=== PATIENT | female | born 1970 | race Caucasian/White ===

== ENCOUNTER → 2023-11-22 14:01 | Outpatient (REF) | payer OTHER, SELFPAY | LOC: HWWDC 14:01 | PROVIDERS: ATTENDING PHYSICIAN Physician Assistant Medical | DX: Z12.31 Encounter for screening mammogram for malignant neoplasm of breast (principal) | CPT/HCPCS: 77063; 77067 ==

== ENCOUNTER → 2024-01-08 06:26 | Day surgery (SDC) | payer OTHER, SELFPAY | LOC: GI 06:26 | PROVIDERS: ATTENDING PHYSICIAN Specialist | DX: Z12.11 Encounter for screening for malignant neoplasm of colon (principal); Z86.010 Personal history of colon polyps | CPT/HCPCS: G0105 ==

== ENCOUNTER → 2025-05-04 07:32 | Outpatient (REF) | payer OTHER, SELFPAY | LOC: HWCARD 07:32 | PROVIDERS: ATTENDING PHYSICIAN Physician Assistant Medical | DX: R07.89 Other chest pain (principal) | CPT/HCPCS: 93005 ==

== ENCOUNTER 2025-05-04 14:09 | Emergency (ER) | payer OTHER, SELFPAY ==
[2025-05-04 14:19] VITALS: BP 121/94
[2025-05-04 15:34] VITALS: BP 151/87
[2025-05-04 15:37] VITALS: BMI 23.2
--- NOTE | 2025-05-04 15:42 | ED.GENMED ---
History of Present Illness
General
Chief Complaint: Chest Pain
Time Seen by Provider: 05/04/25 15:42
History of Present Illness
History of Present Illness:
FOCUSED PAST MEDICAL HISTORY
- Former smoker
REVIEW OF OLD RECORDS
- The patient had a colonoscopy in 2023
Note:
CHIEF COMPLAINT(S)
Chest tightness
HISTORY OF PRESENT ILLNESS
The patient is a 55-year-old female who presents with a primary complaint of chest tightness that has persisted for approximately one week. The sensation is described as a muscular tightness and is predominantly noted while sitting, rather than
during exertion such as climbing stairs. The patient denies any exacerbation of symptoms with physical activity and reports no previous occurrences of similar symptoms. She denies associated symptoms like shortness of breath or pain upon palpation
or with deep breathing. The patient states the discomfort has neither worsened nor improved since onset.
The patient had a recent appointment with her primary care physician where an in-office electrocardiogram (EKG) was conducted, revealing a left bundle branch block. The finding was confirmed by a subsequent EKG performed at a wellness center earlier
today. A review of an EKG from 2016 showed no presence of a left bundle branch block. The patient is currently experiencing chest tightness but reports that the symptom has remained consistent over the past week without acute exacerbation.
No exertional chest discomfort, no shortness of breath, no pleuritic component.
PHYSICAL EXAM
General: Alert, no acute distress.
Skin: Warm, dry.
Head: Normocephalic, atraumatic.
Neck: Supple, trachea midline.
Eyes, Ears, Nose, Mouth, and Throat: Oral mucosa moist.
Cardiovascular: Normal peripheral perfusion, no edema. There is no chest wall tenderness.
Respiratory: Respirations are non-labored, lungs clear to auscultation.
Gastrointestinal: Abdomen nondistended, no pain upon palpation.
Back: Normal range of motion, normal alignment.
Musculoskeletal: Normal range of motion, normal strength.
Neurological: Alert and oriented to person, place, time, and situation, no focal neurological deficit observed.
Psychiatric: Cooperative, appropriate mood and affect.
PLAN
1. Blood work to be conducted, including measurement of troponin levels to assess for myocardial infarction.
2. Recommend follow-up with a economics department chair for further evaluation and management of newly diagnosed left bundle branch block and chest discomfort.
3. Monitor vital signs and clinical condition closely.
DIFFERENTIAL DIAGNOSIS
The Differential Diagnosis includes, in no particular order and is not limited to:
1. Myocardial infarction
2. Acute coronary syndrome
3. Myocarditis
4. Aortic dissection
5. Pericarditis
6. Pulmonary embolism
7. Gastroesophageal reflux disease
8. Costochondritis
9. Anxiety or panic disorder
10. Musculoskeletal chest pain
RADIOLOGY
- Chest x-ray unremarkable
EKG
- Sinus 80, normal axis, left bundle branch block which is new in comparison to 10/02/2015
LABS
- Troponin less than 0.012
UPDATE
-SUMMARY OF ENCOUNTER
The patient, a 55-year-old female, was seen in the emergency department due to persistent chest tightness for approximately one week, with a recent finding of a left bundle branch block on EKG. The symptoms were described as a muscular tightness
predominantly noted while sitting and without exacerbation during exertion. The patient denies associated symptoms such as shortness of breath or pain on deep breathing. Previous testing revealed no left bundle branch block in 2016. Cardiac blood
work was performed, with troponin level measured at less than 0.012 ng/mL, which is within normal limits, indicating no acute myocardial infarction. The patients condition remained stable without worsening of symptoms during the visit.
ASSESSMENT
The patient presents with chest tightness and newly identified left bundle branch block. The primary concern is a potential cardiac cause, although the stability of symptoms and normal troponin suggest low immediate risk. Referral to a economics department chair
for further evaluation is necessary given the new EKG finding.
PLAN
1. Recommend follow-up with [facility] cardiology for further evaluation and management of the left bundle branch block and chest discomfort.
2. Educate the patient on warning signs that require immediate medical attention, such as worsening chest discomfort or symptoms with physical exertion.
3. Provide contact information for a local economics department chair and ensure they reach out to schedule an appointment within the next couple of days.
PATIENT EDUCATION AND COUNSELING
The patient was advised to seek immediate medical attention for any worsening of symptoms, particularly if chest discomfort increases with exertion. She was informed about the importance of the economics department chair evaluation due to the new left bundle
branch block finding.
FOLLOW-UP INSTRUCTIONS
The patient is to follow up with [facility] cardiology as soon as possible. She will be contacted by the cardiology group to schedule an appointment. If not contacted by the following day, she should call their office directly.
MEDICAL DECISION MAKING
-Complexity of Data Reviewed: Differential Diagnosis includes myocardial infarction, acute coronary syndrome, myocarditis, aortic dissection, pericarditis, pulmonary embolism, gastroesophageal reflux disease, costochondritis, anxiety or panic
disorder, and musculoskeletal chest pain.
-Data:
Category 1
Reviewed cardiac blood work, which showed normal troponin levels <0.012 ng/mL, indicating no myocardial infarction.
My independent interpretation of the EKG confirmed the presence of a left bundle branch block.
-Risk:
The patient is considered safe for outpatient management with close follow-up with a economics department chair due to the absence of acute life/organ-threatening processes, stable and non-worsening symptoms, normal cardiac blood work, and reliable follow-up
capability.
DIAGNOSIS
Chest pain
Left bundle branch block, unspecified as chronic or acute (ICD-10: I44.7)
I confirm with the patient that she had no worsening symptoms today. She never had any exertional symptoms that have been ongoing for 1 week. The symptoms are more prominent when she sits and she does not notice them when she exerts herself.
Patient is to follow-up with [facility] cardiology and chest pain hotline discharge paperwork used.
Past History
Past History
ED Past Medical History: Psychiatric (ADHD) and Other (Back pain)
ED Past Surgical History: Orthopedic (Lumbar surgery)
Social History
Tobacco: Smoker
Alcohol: None
Personal:
Living: with family
Employment: Employed
Family History
Family History: CAD (MOM); Negative Early CAD or Sudden
Phy Exam
Physical Exam
Physical Exam:
See HPI
Scores
Heart Score for Chest Pain Patients
STEMI patient?: Not applicable
Course
Orders/Labs/Results
Orders:
Orders
05/04/25 14:10
EKG [Electrocardiogram (*1)] Urgent
Reason for Study: Chest Pain
EKG- Treatment ONCE
05/04/25 15:37
CXR2 [CR Chest - 2 Views ] Urgent
Comment:
Reason For Exam: chest pain with SOB
05/04/25 15:44
Complete Blood Count/With Diff Urgent
Comprehensive Metabolic Panel Urgent
Magnesium Urgent
TSH Reflex To Free T4 Urgent
Troponin I Urgent
Abnormal Lab Results
05/04/25
15:44
RDW 14.6 H %
(11.5-14.5)
Eosinophils % 6.9 H %
(0-6)
Carbon Dioxide 32 H mmol/L
(22-30)
05/04/25 15:44
05/04/25 15:44
Vital Signs
Initial and Last Documented VS:
Initial Vital Signs
Temp Pulse Resp BP Pulse Ox
36.6 C 84 16 121/94 98
05/04/25 14:19 05/04/25 14:19 05/04/25 14:19 05/04/25 14:19 05/04/25 14:19
Last Documented Vital Signs
Temp Pulse Resp BP Pulse Ox
36.4 C 70 14 151/87 96
05/04/25 15:48 05/04/25 15:48 05/04/25 15:48 05/04/25 15:48 05/04/25 15:48
*Pulse Oximetry
SaO2: 98
Oxygen Mode of Delivery: Room air
Patient hypoxic: no
*Critical Care Note
Total Time (30-74mins, 75-104mins- exclusive of procedures): Not Applicable
ED Attending Note
-
Portions of this chart may have been created with voice recognition software.� Occasional wrong word or��sound alike� substitutions may have occurred due to the inherent limitations of voice recognition software.
Discharge Plan
Departure
Patient Disposition: Home (Routine Discharge)
Date of Disposition: 05/04/25
Time of Disposition: 17:19
Patient with high blood pressure during this ER visit?: Yes
Discharge Problem:
Chest pain
Instructions: Chest Pain CBC Follow Up, BLOOD PRESSURE
Prescriptions:
No Action
No Current Medications
0
Referrals:
Julieta Smith PA-C [Family Provider, Internal Medicine]
Barry Ellington MD [Active, Cardiology]
Activity Restrictions/Additional Instructions:
You do have a new left bundle branch block in comparison to the EKG of 2016. Cardiac blood work is normal. Thyroid testing is normal. Chest x-ray shows no abnormality. If you develop worsening chest discomfort or especially if your symptoms
worsen with exertion, return here immediately. I am giving the contact information for local economics department chair to follow-up with.
Interventions
Interventions:
*Risk Screen - Suicide Last Done: 05/04/25 14:19
*General Assessment Last Done: 05/04/25 15:48
*Neglect/Abuse Screening Last Done: 05/04/25 14:19
*ED- Fall Risk Assessment Last Done: 05/04/25 15:48
*ED COVID-19 Vaccine History Last Done: 05/04/25 15:48
*ED Influenza Vaccine History Last Done: 05/04/25 15:48
ED- Cardiac Assessment Last Done: 05/04/25 15:48
Discharge Date and Time
Print Language: SRI LANKAN
[2025-05-04 15:48] VITALS: BP 151/87
[2025-05-04 15:55] LABS: Hematocrit 42.4 % (37.0-47.0); Hemoglobin 14.0 g/dL (12.0-16.0); Mean Corp Hgb Conc. 33.0 g/dL (33.0-37.0); Mean Corpuscular Volume 88.1 fL (81.0-99.0); Nucleated Red Blood Cells % 0 %; Platelet Count 303 10^3/uL (130-400); Red Cell Dist. Width 14.6 % (11.5-14.5)
[2025-05-04 16:00] VITALS: BP 137/87
[2025-05-04 16:05] LABS: ALT (SGPT) 21 U/L (0-35); AST (SGOT) 27 U/L (14-36); Albumin 4.4 g/dl (3.5-5.0); Alkaline Phosphatase 69 U/L (38-126); Blood Urea Nitrogen 13 mg/dl (7-17); Calcium 9.5 mg/dl (8.4-10.2); Carbon Dioxide 32 mmol/L (22-30); Chloride 103 mmol/L (98-107); Estimated Creatinine Clearance 77 ml/min; Glucose 90 mg/dl (70-99); Magnesium 2.2 mg/dl (1.6-2.3); Potassium 4.5 mmol/L (3.5-5.1); Sodium 140 mmol/L (135-145); Total Protein 7.3 g/dl (6.3-8.2); eGFR > 60.00
[2025-05-04 16:15] LABS: Troponin I < 0.012 ng/ml
[2025-05-04 17:30] VITALS: BP 141/85
== END 2025-05-04 17:36 | disposition home or self-care (01) ==
LOC: EMR 14:09
PROVIDERS: EMERGENCY PHYSICIAN Emergency Medicine; FAMILY PHYSICIAN Physician Assistant Medical
DX: R07.89 Other chest pain (principal); I44.7 Left bundle-branch block, unspecified; Z87.891 Personal history of nicotine dependence
CPT/HCPCS: 99285; 71046; 80053; 83735; 84443; 84484; 85025; 93005

== ENCOUNTER 2025-05-20 21:14 | Emergency (ER) | payer OTHER, SELFPAY ==
[2025-05-20 21:16] VITALS: BP 172/89
[2025-05-20 21:45] VITALS: BMI 24.2
--- NOTE | 2025-05-20 22:27 | ED.GENMED ---
History of Present Illness
General
Chief Complaint: Skin Surface Trauma
Source: patient
Time Seen by Provider: 05/20/25 22:14
History of Present Illness
History of Present Illness:
55-year-old female presenting to the ER for evaluation after sustaining laceration at the base of the left thumb earlier this evening on an unknown object. Unknown last tetanus. [id number]. No other injury sustained.
Past History
Past History
ED Past Medical History: Psychiatric (ADHD) and Other (Back pain)
ED Past Surgical History: Orthopedic (Lumbar surgery)
Social History
Tobacco: Smoker
Alcohol: None
Drug: None
Personal:
Living: with family
Employment: Employed
Family History
Family History: CAD (MOM); Negative Early CAD or Sudden
Review of Systems
Review of Systems
All Other Systems: ROS reviewed and negative except as documented in HPI and ROS
Phy Exam
Physical Exam
Physical Exam:
GENERAL: Alert , in no apparent distress
EYE: conjunctiva clear
Head: Normocephalic atraumatic
NECK: Supple,
ENT: mmm.
LUNGS: no acute respiratory distress
NEUROLOGICAL: Alert and oriented
SKIN: Warm and dry, 9 mm laceration to the base of the left thumb along the palmar surface. The tendon is visualized but intact. Patient has full range of motion at the IP joint and MCP joint. Sensation grossly intact to light touch.
MUSCULOSKELETAL: well perfused.
PSYCH: Normal and appropriate interaction.
Scores
Heart Failure Risk
Heart Failure Risk Score: Not Applicable
Heart Score for Chest Pain Patients
STEMI patient?: Not applicable
Withdrawal Assessment of Alcohol
Withdrawal Assessment Completed?: Not applicable
Course
Vital Signs
Initial and Last Documented VS:
Initial Vital Signs
Temp Pulse Resp BP Pulse Ox
97.8 F 97 18 172/89 98
05/20/25 21:16 05/20/25 21:16 05/20/25 21:16 05/20/25 21:16 05/20/25 21:16
Last Documented Vital Signs
Temp Pulse Resp BP Pulse Ox
97.8 F 97 18 172/89 98
05/20/25 21:16 05/20/25 21:16 05/20/25 21:16 05/20/25 21:16 05/20/25 22:28
Procedures
Laceration Closure
Left Thumb:
Status of Wound: clean
Size of Wound in cm: 0.9
Description of Wound Edges: sharp
Preparation: cleaned with saline
Anesthesia: 1% Lidocaine
Revision/Debridement: routine- no revision
Skin Closure Material: 5-0 prolene
Number of sutures: 3
MDM/Problems Addressed
Differential Diagnosis Includes:
Superficial laceration
No tendon involvement or nerve involvement
No concern for fracture
MDM/Problems Addressed:
55-year-old female presenting to the ER for evaluation following laceration to the left thumb. Laceration repaired as above without difficulty. Patient advised on wound care. Suture removal 10 days. Patient aware of return precautions.
*Pulse Oximetry
SaO2: 98
Oxygen Mode of Delivery: Room air
Patient hypoxic: no
*Critical Care Note
Total Time (30-74mins, 75-104mins- exclusive of procedures): Not Applicable
ED Attending Note
-
Portions of this chart may have been created with voice recognition software.� Occasional wrong word or��sound alike� substitutions may have occurred due to the inherent limitations of voice recognition software.
Discharge Plan
Departure
Patient Disposition: Home (Routine Discharge)
Date of Disposition: 05/20/25
Time of Disposition: :
Patient with high blood pressure during this ER visit?: Yes
Discharge Problem:
Laceration of left thumb
Instructions: Laceration Repair With Stitches (DC)
Prescriptions:
No Action
dextroamphetamine-amphetamine [Adderall] 10 mg Tablet
10 mg PO DAILY
dextroamphetamine-amphetamine [Adderall XR] 20 mg Capsule,Extended Release 24hr
20 mg PO DAILY
Referrals:
Julieta Smith PA-C [Family Provider, Internal Medicine]
Interventions
Interventions:
*Risk Screen - Suicide Last Done: 05/20/25 21:18
*General Assessment Last Done: 05/20/25 21:18
*Neglect/Abuse Screening Last Done: 05/20/25 21:18
*ED- Fall Risk Assessment Last Done: 05/20/25 21:18
*ED COVID-19 Vaccine History Last Done: 05/20/25 21:18
*ED Influenza Vaccine History Last Done: 05/20/25 21:18
ED-Skin Assessment Last Done: 05/20/25 22:19
Discharge Date and Time
Print Language: ALBAN[place]
[2025-05-20 22:36] VITALS: BP 124/65
[2025-05-20] MEDS: ADACEL 0.5 ML IM (22:37)
== END 2025-05-20 22:45 | disposition home or self-care (01) ==
LOC: EMR 21:14
PROVIDERS: EMERGENCY PHYSICIAN Emergency Medicine; FAMILY PHYSICIAN Physician Assistant Medical
DX: S61.012A Laceration without foreign body of left thumb without damage to nail, initial encounter (principal); W45.8XXA Other foreign body or object entering through skin, initial encounter; F90.9 Attention-deficit hyperactivity disorder, unspecified type; F17.200 Nicotine dependence, unspecified, uncomplicated; Z23 Encounter for immunization
CPT/HCPCS: 99282; 12001; 90471; 90715